=== PATIENT | male | born 1970 | race Caucasian/White ===

== ENCOUNTER → 2016-06-11 | Outpatient (CLI) | payer MEDICARE, OTHER | LOC: NM 13:59 | DX: K44.9 Diaphragmatic hernia without obstruction or gangrene (principal); K21.9 Gastro-esophageal reflux disease without esophagitis; K31.84 Gastroparesis; R93.3 Abnormal findings on diagnostic imaging of other parts of digestive tract | CPT/HCPCS: 78264; A9541 ==

== ENCOUNTER 2016-06-23 06:55 | Emergency (ER) | payer MEDICARE, OTHER ==
[2016-06-23 07:51] LABS: HEMOGLOBIN 14.8 gm/dl (14.0-17.5); RED BLOOD COUNT 4.9 M/UL (4.20-5.50)
[2016-06-23 08:09] LABS: BUN/CREATININE RATIO 16 (0-10)
== END 2016-06-23 14:35 | disposition home or self-care (01) ==
LOC: ER1 06:55
PROVIDERS: Physician Assistant
DX: K21.9 Gastro-esophageal reflux disease without esophagitis (principal); Z90.49 Acquired absence of other specified parts of digestive tract; Z79.899 Other long term (current) drug therapy; R11.2 Nausea with vomiting, unspecified
CPT/HCPCS: 36415; 80053; 81001; 82550; 82553; 83690; 83874; 84484; 85025; 93005; 96361; 96374; 96375; 99285; C9113; J1200; J2405; J2765; J7030; J7050; Q9962